=== PATIENT | male | born 1980 | race Two or more races ===

== ENCOUNTER 2021-01-06 16:45 | Emergency (ER) | payer OTHER ==
[~2021-01-06] VITALS: Ht 185.4 cm; Wt 99.8 kg
[2021-01-06] MEDS ORDERED: NORFLEX100MG PO (17:49)
[2021-01-06] MEDS ORDERED: KETO10TA2 PO (17:49)
== END 2021-01-06 17:56 | disposition home or self-care (01) ==
LOC: ER 16:45
DX: M79.661 Pain in right lower leg (principal); Z96.651 Presence of right artificial knee joint

== ENCOUNTER 2021-04-13 16:54 | Emergency (ER) | payer OTHER ==
[~2021-04-13] VITALS: Ht 185.4 cm; Wt 106.6 kg
[~2021-04-13 16:54] MED LIST: KETO10TA2 PO; NORFLEX100MG PO
[2021-04-13] MEDS ORDERED: BUTALB-ACETAMI1 EAC2 PO (18:21)
== END 2021-04-13 18:32 | disposition home or self-care (01) ==
LOC: ER 16:54
DX: R51.9 Headache, unspecified (principal)

== ENCOUNTER 2021-10-12 15:24 | Emergency (ER) | payer OTHER ==
[~2021-10-12] VITALS: Ht 185.4 cm; Wt 104.8 kg
[~2021-10-12 15:24] MED LIST changes: +BUTALB-ACETAMI1 EAC2 PO
[2021-10-12] MEDS ORDERED: ZITHROMAX500 MG PO (19:29)
== END 2021-10-12 19:45 | disposition home or self-care (01) ==
LOC: ER 15:24
DX: S29.9XXA Unspecified injury of thorax, initial encounter (principal); S69.91XA Unspecified injury of right wrist, hand and finger(s), initial encounter; W18.30XA Fall on same level, unspecified, initial encounter; Y93.9 Activity, unspecified; Y92.019 Unspecified place in single-family (private) house as the place of occurrence of the external cause; Z88.0 Allergy status to penicillin

== ENCOUNTER 2021-12-11 21:52 | Emergency (ER) | payer OTHER ==
[~2021-12-11] VITALS: Ht 185.4 cm; Wt 111.1 kg
[~2021-12-11 21:52] MED LIST changes: +ZITHROMAX500 MG PO
== END 2021-12-11 22:45 | disposition home or self-care (01) ==
LOC: ER 21:52
DX: H60.92 Unspecified otitis externa, left ear (principal)

== ENCOUNTER → 2022-04-01 | Emergency (ER) | payer OTHER ==
[~2022-04-01] VITALS: Ht 185.4 cm; Wt 107.0 kg
== END | disposition home or self-care (01) ==
LOC: ER 14:51
DX: R51.9 Headache, unspecified (principal)

== ENCOUNTER 2022-07-24 14:59 | Emergency (ER) | payer OTHER ==
[~2022-07-24] VITALS: Ht 185.4 cm; Wt 106.6 kg
== END 2022-07-24 19:31 | disposition home or self-care (01) ==
LOC: ER 14:59
DX: S80.01XA Contusion of right knee, initial encounter (principal); S90.31XA Contusion of right foot, initial encounter; S30.0XXA Contusion of lower back and pelvis, initial encounter; W10.8XXA Fall (on) (from) other stairs and steps, initial encounter; Y93.89 Activity, other specified; Y92.018 Other place in single-family (private) house as the place of occurrence of the external cause; Y99.9 Unspecified external cause status

== ENCOUNTER 2022-08-19 13:33 | Emergency (ER) | payer OTHER ==
[~2022-08-19] VITALS: Ht 185.4 cm; Wt 108.9 kg
== END 2022-08-19 14:35 | disposition home or self-care (01) ==
LOC: ER 13:33
DX: J01.80 Other acute sinusitis (principal)

== ENCOUNTER 2022-09-08 16:20 | Emergency (ER) | payer OTHER ==
[~2022-09-08] VITALS: Ht 185.4 cm; Wt 104.3 kg
[2022-09-08] MEDS ORDERED: CYCLOBENZAPRINE10 MG PO (18:49)
[2022-09-08] MEDS ORDERED: RELAFEN DS1000 MG PO (18:49)
== END 2022-09-08 19:02 | disposition home or self-care (01) ==
LOC: ER 16:20
DX: M25.532 Pain in left wrist (principal); M54.9 Dorsalgia, unspecified

== ENCOUNTER 2023-02-22 10:34 | Emergency (ER) | payer OTHER ==
[~2023-02-22] VITALS: Ht 175.3 cm; Wt 81.6 kg
[~2023-02-22 10:34] MED LIST changes: +CYCLOBENZAPRINE10 MG PO; +INTESTINEX680 M1 PO; +PEPCID AC20 MG PO; +RELAFEN DS1000 MG PO; +ZOFRAN8 MG PO
== END 2023-02-22 12:58 | disposition home or self-care (01) ==
LOC: ER 10:35
DX: M25.571 Pain in right ankle and joints of right foot (principal)

== ENCOUNTER 2023-04-27 20:02 | Emergency (ER) | payer OTHER ==
[~2023-04-27] VITALS: Ht 185.4 cm; Wt 99.8 kg
[2023-04-27] MEDS ORDERED: DEXAMETHASONE SODIUM PHOSPHATE 4 MG/ML VIAL IM ONE (21:30)
[2023-04-27] MEDS ORDERED: KETOROLAC TROMETHAMINE 60 MG VIAL IM ONE (21:30)
[2023-04-27] MEDS ORDERED: ORPHENADRINE CITRATE 30 MG/ML AMPUL IM ONE (21:30)
== END 2023-04-28 00:13 | disposition home or self-care (01) ==
LOC: ER 20:02
DX: M25.511 Pain in right shoulder (principal)

== ENCOUNTER 2023-11-07 13:01 | Emergency (ER) | payer OTHER ==
[~2023-11-07] VITALS: Ht 185.4 cm; Wt 95.3 kg
[2023-11-07] MEDS ORDERED: ORPHENADRINE CITRATE 30 MG/ML AMPUL IM ONE (15:15)
[2023-11-07] MEDS ORDERED: KETOROLAC TROMETHAMINE 60 MG VIAL IM ONE ×2 (15:15→15:27)
[2023-11-07] MEDS ORDERED: ORPHENADRINE CITRATE 30 MG/ML AMPUL ONE (15:26)
== END 2023-11-07 16:37 | disposition home or self-care (01) ==
LOC: ER 13:03
DX: M54.89 Other dorsalgia (principal)

== ENCOUNTER 2024-04-22 19:19 | Emergency (ER) | payer OTHER ==
[~2024-04-22] VITALS: Ht 185.4 cm; Wt 99.8 kg
[2024-04-22 20:54] LABS: HEMATOCRIT 43.8 % (39.0-48.0); HEMOGLOBIN 15.5 g/dL (13-16.00); MEAN CORPUSCULAR HEMOGLOBIN 33.6 pg (27.00-32.0); MEAN CORPUSCULAR HGB CONC 35.3 g/dl (32.0-36.0); PLATELET COUNT 185 K/uL (150-450); RED BLOOD COUNT 4.61 M/uL (4.00-6.00)
== END 2024-04-22 21:25 | disposition home or self-care (01) ==
LOC: ER 19:21
DX: J10.1 Influenza due to other identified influenza virus with other respiratory manifestations (principal); Z20.822 Contact with and (suspected) exposure to COVID-19